=== PATIENT | male | born 1970 | race American Indian/Alaskan Native ===

== ENCOUNTER 2017-11-21 19:14 | Emergency (ER) | payer BC ==
[2017-11-21 19:57] VITALS: BP 145/92
[2017-11-21 20:19] LABS: Basophils % (Auto) 0.6 % (0.0-1.8); Eosinophils # (Auto) 0.1 K/mm3 (0.0-0.4); Eosinophils % (Auto) 1.3 % (0.0-4.3); Hematocrit 46.5 % (35.5-45.6); Hemoglobin 15.6 gm/dl (11.8-15.2); Lymphocytes # (Auto) 2.9 K/mm3 (1.2-5.4); Lymphocytes % (Auto) 35.7 % (13.4-35.0); Mean Corpuscular HGB Conc 34 % (32-34); Mean Corpuscular Hemoglobin 31 pg (28-32); Mean Corpuscular Volume 91 fl (84-94); Monocytes # (Auto) 0.9 K/mm3 (0.0-0.8); Monocytes % (Auto) 11.3 % (0.0-7.3); Platelet Count 213 K/mm3 (140-440); Red Blood Count 5.08 M/mm3 (3.65-5.03); Red Cell Distribution Width 14.2 % (13.2-15.2)
[2017-11-21 20:32] LABS: Alanine Aminotransferase 23 units/L (7-56); Albumin 4.7 g/dL (3.9-5); BUN/Creatinine Ratio 15; Blood Urea Nitrogen 12 mg/dL (9-20); Calcium 9.4 mg/dL (8.4-10.2); Hemolysis Index 12
[2017-11-21 21:39] LABS: Bilirubin,Urine NEG (Negative); Blood,Urine NEG (Negative); Color,Urine Straw (Yellow); Protein,Urine <15 mg/dL mg/dL (Negative); RBC,Urine < 1.0 /HPF (0.0-6.0); Urobilinogen,Urine < 2.0 mg/dL (<2.0)
--- NOTE | 2017-11-22 14:38 | Emergency Department Report ---
ED Abdominal Pain HPI - General Chief Complaint: Abdominal Pain Stated Complaint: ABDOMINAL PAIN Time Seen by Provider: 11/22/17 14:33 Source: patient Mode of arrival: Ambulatory Limitations: No Limitations - History of Present Illness Initial Comments: 47-year-old -[place] male comes in for complaint of having lower abdominal pain that radiates from the front to the back for about 3 weeks he reports that his gotten increasingly worse in the last 4 days. He also complains of having rectal tears with something growing on the outside per patient patient does admit that he strains to have a BM. He denies nausea vomiting diarrhea. He also denies any blood in stool or black tarry stool. Does complain of a cough no sore throat no chest pain. He has a history of hypertension current medications lisinopril and amlodipine not sure of the dose. He is allergic to chloroquine. He's had no recent travels but his fiance has traveled from [facility] 2 weeks ago. MD Complaint: abdominal pain -: days(s) (4), week(s) (3) Location: suprapubic Radiation: back Severity scale (0 -10): 7 Quality: stabbing Improves With: nothing Worsens With: nothing Associated Symptoms: denies other symptoms - Related Data Previous Rx's Medication Instructions Recorded Last Taken Type Enalapril/Hydrochlorothiazide 1 tab PO DAILY #30 tablet 05/04/15 Unknown Rx [Enalapril-Hctz 5-12.5 mg] Hydrocortisone [Anusol-Hc] 30 gm RC Q8H #1 box 11/22/17 Unknown Rx Allergies Allergy/AdvReac Type Severity Reaction Status Date / Time No Known Allergies Allergy Unverified 05/04/15 19:18 ED Review of Systems ROS: Stated complaint: ABDOMINAL PAIN Other details as noted in HPI Constitutional: denies: chills, fever Eyes: denies: eye pain, eye discharge, vision change ENT: denies: ear pain, throat pain Respiratory: cough Gastrointestinal: abdominal pain, other (rectal pain) Genitourinary: denies: urgency, dysuria Musculoskeletal: back pain Skin: denies: rash, lesions Neurological: denies: headache, weakness, paresthesias Psychiatric: denies: anxiety, depression Hematological/Lymphatic: denies: easy bleeding, easy bruising ED Past Medical Hx - Past Medical History Hx Hypertension: Yes - Surgical History Past Surgical History?: No - Social History Smoking Status: Current Every Day Smoker Substance Use Type: Alcohol - Medications Home Medications: Home Medications Medication Instructions Recorded Confirmed Last Taken Type Enalapril/Hydrochlorothiazide 1 tab PO DAILY #30 tablet 05/04/15 Unknown Rx [Enalapril-Hctz 5-12.5 mg] Hydrocortisone [Anusol-Hc] 30 gm RC Q8H #1 box 11/22/17 Unknown Rx ED Physical Exam - General Limitations: No Limitations General appearance: alert, in no apparent distress - Head Head exam: Present: atraumatic, normocephalic - Eye Eye exam: Present: normal appearance - ENT ENT exam: Present: mucous membranes moist - Neck Neck exam: Present: normal inspection - Respiratory Respiratory exam: Present: normal lung sounds bilaterally. Absent: respiratory distress - Cardiovascular Cardiovascular Exam: Present: regular rate, normal rhythm. Absent: systolic murmur, diastolic murmur, rubs, gallop - GI/Abdominal GI/Abdominal exam: Present: soft, normal bowel sounds. Absent: distended, tenderness - Rectal Rectal exam: Present: normal rectal tone, hemorrhoids - Extremities Exam Extremities exam: Present: normal inspection - Back Exam Back exam: Present: normal inspection - Neurological Exam Neurological exam: Present: alert, oriented X3 - Psychiatric Psychiatric exam: Present: normal affect, normal mood - Skin Skin exam: Present: warm, dry, intact, normal color. Absent: rash ED Course Vital Signs 11/21/17 11/21/17 19:52 19:57 Temperature 98.2 F 98.2 F Pulse Rate 70 70 Respiratory 18 18 Rate Blood Pressure 145/92 145/92 O2 Sat by Pulse 99 99 Oximetry ED Medical Decision Making - Lab Data Result diagrams: 11/21/17 20:04 11/21/17 20:04 - Medical Decision Making Patient's been evaluated by this provider fast track. Patient's had lab work that appears to be within normal limits a little bit of polycythemia. Urine is negative. I would do a KUB. Was noted on exam the patient has a small hemorrhoid that is non-thrombosis. Critical care attestation.: If time is entered above; I have spent that time in minutes in the direct care of this critically ill patient, excluding procedure time. ED Disposition Clinical Impression: Hemorrhoids, external, Abdominal pain in male Disposition: DC-01 TO HOME OR SELFCARE Is pt being admited?: No Does the pt Need Aspirin: No Condition: Stable Instructions: Hemorrhoids (ED), Abdominal Pain (ED) Additional Instructions: Please follow up with Dr. Eliazar Mendez for further evaluation. You continues to Anusol as needed for hemorrhoids. Prescriptions: Hydrocortisone [Anusol-Hc] 30 gm RC Q8H #1 box Referrals: GENET RODRIGUEZ [Other] - 3-5 Days Forms: Work/School Release Form(ED)
--- NOTE | 2017-11-22 15:32 | XRay Report ---
SUPINE KUB: History: Abdominal pain. The abdominal gas pattern is unremarkable. No masses or organomegaly is identified and there is no gross evidence of free air or fluid. No significant soft tissue calcifications are noted. IMPRESSION: Unremarkable abdomen.
== END 2017-11-22 15:54 | disposition home or self-care (01) ==
LOC: ED 19:14
DX: K64.4 Residual hemorrhoidal skin tags (principal); J02.9 Acute pharyngitis, unspecified; I10 Essential (primary) hypertension; F17.200 Nicotine dependence, unspecified, uncomplicated
CPT/HCPCS: 36415; 74018; 80053; 81001; 85025; 99284